=== PATIENT | female | born 1950 | race Caucasian/White ===

== ENCOUNTER 2019-08-17 20:26 | Inpatient (IN) | payer MEDICARE, BC ==
[~2019-08-17] VITALS: Ht 160 cm; Wt 44.0 kg
--- NOTE | 2019-08-17 21:30 | NUR ---
GPS ADMISSION NOTE, RECEIVED PATIENT FROM [facility] HOME. PATIENT ARRIVED ON THIS UNIT AT 2130 VIA WHEELCHAIR WITH 1 ORACLE SOA CONSULTANT ESCORT. PATIENT ADMITTED VOLUNTARY UPON FACE TO FACE ASSESSMENT PATIENT IS NOTED TO BEING DISHEVELED, DISORGANIZED, DEPRESSED, COOPERATIVE, PARANOID, AND NEEDS REDIRECTION. PATIENT IS CURRENTLY LYING IN BED AWAKE, HAS NO S/S OR COMPLAINTS OF PAIN AT THIS TIME. PATIENT IS DISPLAYING NO S/S OF APPARENT DISTRESS. PATIENT BREATHING IS UNLABORED WITH EQUAL RISE AND FALL OF THE CHEST. PATIENT IS ALERT AND ORIENTATED X 3 ON ROOM AIR. PATIENT ASSISTED WITH TURING AND REPOSITIONING Q2HR AND PRN FOR COMFORT AND CIRCULATION. PATIENT HAS NO NEEDS AT THIS TIME. PATIENT DENIES HOMICIDAL IDEATIONS AND HAS SUICIDE IDEATIONS AT THIS TIME. PATIENT EVALUATED BY CRISIS TEAM AND SIGNED VOLUNTARY. BUT PATIENT REFUSED TO SIGN OTHER PAPER WORK DUE TO BEING TIRED. PATIENT RIGHTS BOOKLET GIVEN. PATIENT IS UNDER THE PSYCHIATRIC CARE OF DR. PRAKASH AND THE MEDICAL CARE OF DR COLMENARES. PATIENT BELONGINGS WERE INVENTORIED AND CHECKED FOR CONTRABAND. ALL CONTRABAND REMOVED AND STORED IN PATIENT HALLWAY LOCKER. PATIENT ADVANCED DIRECTIVES PREFERENCE, IMMUNIZATIONS QUESTIONER, NECESSARY PAPERWORK COMPLETED. PATIENT REFUSED SKIN ASSESSMENT. PATIENT ORIENTATED TO ROOM, FLOOR, AND STAFF WITH ALL QUESTIONS ANSWERED. PATIENT EDUCATED ON THE USE OF THE CALL COSBY. PATIENT BED SIDE RAILS ARE UP X 2 FOR SAFETY. PATIENT BED IS LOCKED, LOW, AND I WILL CONTINUE TO MONITOR THIS PATIENT Q 15 MIN WITH THE HELP OF STAFF TO MAINTAIN SAFETY.
[2019-08-17 21:40] VITALS: BP 146/64
[2019-08-17] MEDS ORDERED: ALEN70TA3 PO (22:22)
[2019-08-17] MEDS ORDERED: ALPR1TAB7 PO (22:23)
[2019-08-17] MEDS ORDERED: CEVI30CA4 PO (22:24)
[2019-08-17] MEDS ORDERED: SERT25TA PO (22:26)
[2019-08-17] MEDS ORDERED: HYDR200T81 PO (22:26)
[2019-08-17] MEDS ORDERED: TRAZ300T2 PO (22:27)
[2019-08-17] MEDS ORDERED: MAGNESIUM HYDROXIDE 30 ML UDC PO PRN (22:30)
[2019-08-17] MEDS ORDERED: MAG HYDROX/AL HYDROX/SIMETH 30 ML UDC PO PRN (22:30)
[2019-08-17] MEDS ORDERED: HYDR-4075 PO (22:55)
--- NOTE | 2019-08-17 22:58 | NUR ---
RN NOTES: EXPLAINED TO PATIENT WE NEED TO DO BODY CHECK/ASSESSMENT PART OF OUR ADMISSION PROTOCOL, SHE SAID "NOT AT THIS TIME, I JUST WANT MY SLEEPING PILL PLEASE", SHE ALSO REFUSED FOR BLOOD SUGAR CHECK.
[2019-08-17] MEDS ORDERED: BLOOD SUGAR DIAGNOSTIC 1 EACH STRIP IN ONE (23:00)
[2019-08-17] MEDS: TEMAZEPAM 7.5 MG CAPSULE PO PRN (23:16)
[2019-08-17] MEDS ORDERED: hydrALAZINE HCL 10 MG TABLET PO PRN (23:30)
--- NOTE | 2019-08-17 23:34 | NUR ---
DEDRA NOTES: AT 2316 RESTORIL GIVEN FOR SLEEP PER PATIENT REQUEST.V/S STABLE NO SIGN OF AGITATION OR RESTLESSNESS, LYING QUIETLY IN HER BED,KEPT COMFORTABLE IN BED. Addendum: 08/18/19 at 0154 by MARGARET HEATH RN ADDED NOTES: OFFERED PNA AND FLU VACCINE, SHE REFUSE FOR BOTH. Addendum: 08/18/19 at 0155 by MARGARET HEATH RN ADDED NOTED: DESPITE EXPLANATION OF THE ADVANTAGE/DISADVANTAGE OF FLU AND PNA VACCINE SHE STILL DECLINE TO GET IT.
--- NOTE | 2019-08-18 04:07 | NUR ---
RN NOTES: ASLEEP FROM 0000, KEPT ON CLOSE WATCH, BED LOW AND LOCKED, FALL,SAFETY AND ASPIRATION PRECAUTION OBSERVED AT ALL TIME.
--- NOTE | 2019-08-18 05:25 | NUR ---
RN NOTES: AWAKE, CALLS AND NEEDS ATTENDED, SHE REFUSE FOR NASAL SWAB FOR MRSA SCREENING, WILL TRY AGAIN LATER. SHE ADMIT SHE SMOKE BEFORE BUT NOT ANYMORE, CANNOT RECALL HOW MANY YEARS SHE ALREADY STOP.
[2019-08-18 07:55] LABS: BASOPHILS % (AUTO) 0.7 % (0.0-2.0); EOSINOPHILS % (AUTO) 1.6 % (0.0-6.0); HEMATOCRIT 38 % (33-45); LYMPHOCYTES # (AUTO) 1.2 /CMM (0.8-4.8); LYMPHOCYTES % (AUTO) 28.6 % (20.0-44.0); MEAN CORPUSCULAR HGB CONC 34 g/dl (31.0-36.0); MEAN CORPUSCULAR VOLUME 100 fL (82-100); MONOCYTES # (AUTO) 0.3 /CMM (0.1-1.30); MONOCYTES % (AUTO) 8.1 % (2.0-12.0); NEUTROPHILS # (AUTO) 2.6 /CMM (1.8-8.9); PLATELET COUNT (AUTO) 148 /CMM (150-450); RED BLOOD CELL COUNT(AUTO) 3.84 MIL/uL (4.0-5.2); WHITE BLOOD COUNT (AUTO) 4.3 K/uL (4.3-11.0)
[2019-08-18 08:00] VITALS: BP 121/72
[2019-08-18 08:00] LABS: CALCIUM, SERUM 8.2 mg/dL (8.5-10.1); CREATININE 0.7 mg/dL (0.6-1.3); POTASSIUM 3.9 mmol/L (3.5-5.1)
[2019-08-18] MEDS: HYDROXYCHLOROQUINE 200 MG TABLET PO SCH (09:00)
--- NOTE | 2019-08-18 09:29 | NUR ---
GPS RN NOTES PATIENT REFUSED TO HAVE AM MEDICATION. RISKS AND BENEFITS EXPLAINED BUT TO NO AVAIL. PATIENT STRONGLY REFUSED. CHARGE NURSE AWARE. WILL CONTINUE TO MONITOR
--- NOTE | 2019-08-18 13:00 | NUR ---
GPS RN NOTES PATIENT SEEN AND EXAMINED BY WALE COLMENARES CLUTCH SPECIALIST. HOSPITALIST VERIFIED CODE STATUS WITH PATIENT AND PATIENT VERBALIZED SHE WANTS TO BE DNR/DNI. PATIENT SIGNED POLST FORM. CHARGE NURSE ALSO MADE AWARE. PATIENT WITH NEW ORDER FROM WALE COLMENARES FOR UA. PATIENT MADE AWARE AND VERBALIZED SHE WILL PROVIDE URINE SAMPLE NEXT TIME SHE GOES TO THE BATHROOM. WILL CONTINUE TO MONITOR
[2019-08-18 16:00] VITALS: BP 136/76
--- NOTE | 2019-08-18 18:05 | NUR ---
GPS RN NOTES PATIENT REFUSED TO EAT OR DRINK ANYTHING. RISKS AND BENEFITS EXPLAINED BUT TO NO AVAIL. PATIENT STRONGLY REFUSED. NO URINE OUTPUT NOTED AT THIS TIME, PATIENT REPORTED LAST URINE OUTPUT THIS MORNING. NO BLADDER DISTENTION NOTED. OFFERED BLADDER SCAN BUT PATIENT REFUSED. RISKS AND BENEFITS EXPLAINED BUT PATIENT STRONGLY REFUSED. VERBALIZED SHE DOES NOT FEEL ANYTHING AND DOES NOT HAVE THE URGE TO VOID AT THIS TIME. VERBALIZED SHE WILL PROVIDE URINE SAMPLE WHEN SHE NEEDS TO URINATE. PSYCH MD AND HOSPITALIST AWARE. WILL CONTINUE TO MONITOR
[2019-08-18] MEDS: LORAZEPAM 0.5 MG TABLET PO PRN (19:54)
[2019-08-18 20:45] VITALS: BP 155/77
[2019-08-18] MEDS: TRAZODONE 50 MG TABLET PO SCH (21:15)
--- NOTE | 2019-08-19 07:46 | NUR ---
GPS RN NOTES PATIENT ON BED ,RESTING COMFORTABLY AT THI TIME , ALERT ORIENTED , NO SOB NOTED , RESPIRATION EVEN UNLABORED, PLAN OF CARE DISCUSSED WITH PATIENT , BED LOCKED AND LOWEST POSITION, WILL CONT TO MONITOR Q15 MIN FOR BEHAVIOR CHANGES ,
[2019-08-19 08:00] VITALS: BP 117/63
[2019-08-19] MEDS: HYDROXYCHLOROQUINE 200 MG TABLET PO SCH (09:00)
[2019-08-19] MEDS: SERTRALINE HCL 50 MG TABLET PO SCH (09:00)
--- NOTE | 2019-08-19 09:37 | NUR ---
GPS RN NOTE STRONGLY REFUSED TO HAVE BREAKFAST AND TAKE MORNING PO MEDS, EXPLAINED X2 ,STILL REFUSING, WILL CONT TO ENCOURAGE
--- NOTE | 2019-08-19 10:25 | NUR ---
GPS RN NOTE DIETITIAN AT BEDSIDE AWARE THAT PATIENT REFUSING TO EAT , STATED THAT NEED ORDER FOR SWALLOW EVAL ,ORDER CARRIED OUT
--- NOTE | 2019-08-19 11:23 | NUR ---
GPS RN NOTE WALE AT BEDSIDE AWARE THAT PATENT REFUSING PILLS AND TO EAT BREAKFAST WILL CONT TOMONITOR STILL UNABLE TO COLLECT UA SPECIMEN, WILL CONT TO TRY
--- NOTE | 2019-08-19 11:43 | NUR ---
GPS RN NOTE SEEN BY DR ROONEY DANCE HISTORIAN NOTIFIED THAT PATIENT STILL REFUSING TO EAT MEDS IN AM ,STATED TO MONITOR CLOSELY AND CONT TO ENCOURAGE TO TAKE MEDS
--- NOTE | 2019-08-19 12:30 | NUR ---
GPS RN NOTE STILL REFUSING TO HAVE LUNCH , OFFERED X2, EXPLAINED CONSEQUENCES OF NOT EATING ,STILL REUSING, WILL CONT TO MONITOR CLOSELY
--- NOTE | 2019-08-19 14:03 | NUR ---
gps rn note encouraged to to to br to collect urine specimen ,stated that dont need it at this time , turn reposition done , all needs attended encourage to take morning Meds but still refusing Addendum: 08/19/19 at 1712 by NEYMAR GONZALEZ RN WALE COLMENARES ROOM SERVICE MANAGER AWARE THAT UNABLE TO COLLECT URINE , NO STRAIGHT CATH AT THIS TIME PER WALE ,WILL CONT TO TRY TO COLLECT UA
[2019-08-19 16:00] VITALS: BP 144/63
--- NOTE | 2019-08-19 18:10 | NUR ---
GPS RN NOTE STILL REFUSING DINNER , OFFERED X 2 , OFFERED TO DRINK WATER , DRANK FEW SIPS , WILL CONT TO ENCOURAGE TO EAT
[2019-08-19] MEDS: LORAZEPAM 0.5 MG TABLET PO PRN (19:46)
--- NOTE | 2019-08-19 19:48 | NUR ---
RN NOTES : PT. C/O FEELING ANXIOUS RESTLESS ATIVAN 0.5 MG PO PRN GIVEN, PER PT. REQUEST , WILL CONTINUE TO MONITOR.
[2019-08-19 20:30] VITALS: BP 127/69
--- NOTE | 2019-08-19 20:30 | NUR ---
RN NOTES: PT. RFUSED WEEKLY SKIN REASSESSMENT AND PHOTOGRAPH ,ENCOURAGED ,EXPLAINED RISKS AND BENEFITS STILL REFUSED, PT. STRONGLY REFUSED, AND PER PT. MY SKIN IS FINE.
[2019-08-19] MEDS: TRAZODONE 50 MG TABLET PO SCH (22:02)
[2019-08-20] MEDS ORDERED: ALENDRONATE 70 MG TABLET PO SCH (07:00)
[2019-08-20 08:00] VITALS: BP 159/78
[2019-08-20] MEDS: HYDROXYCHLOROQUINE 200 MG TABLET PO SCH (08:46)
[2019-08-20] MEDS: SERTRALINE HCL 50 MG TABLET PO SCH (08:46)
[2019-08-20] MEDS: LORAZEPAM 0.5 MG TABLET PO PRN ×2 (08:46→20:25)
[2019-08-20 09:17] LABS: APPEARANCE,URINE CLEAR (CLEAR); BILIRUBIN,URINE 1+ (NEGATIVE); BLOOD, URINE NEGATIVE Ery/uL (NEGATIVE); COLOR,URINE YELLOW (YELLOW); KETONES,URINE 3+ (NEGATIVE); LEUKOCYTE ESTERASE ,URINE NEGATIVE (NEGATIVE); NITRITE, URINE NEGATIVE (NEGATIVE); PROTEIN,URINE TRACE mg/dl (NEGATIVE); UGLUCOSE NEGATIVE (NEGATIVE); UROBILINOGEN,URINE 0.2 EU/dL (0.2)
[2019-08-20 09:48] LABS: BACTERIA,URINE Rare /HPF (None Seen); RBC,URINE 0-2 /HPF (0-2); SQUAMOUS EPITHELIAL CELL,UR Few /HPF (None Seen); WBC,URINE 0-2 /HPF (0-3)
--- NOTE | 2019-08-20 14:56 | NUR ---
Group Note: SW encouraged pt to attend group therapy on 08/20/19 at 1:30pm discussing support systems for when they are in the hospital and for once they are discharged but the pt was unable to attend.
[2019-08-20 16:00] VITALS: BP 146/79
--- NOTE | 2019-08-20 16:01 | NUR ---
SW called the pts , Miguel Angel ([phone]), and left him a voicemail stating that the SW would like to speak to him regarding discharge planning and treatment planning.
[2019-08-20] MEDS: ENSURE CLEAR 237 ML LIQUID (MIX BERRY) PO SCH (17:00)
[2019-08-20 19:47] VITALS: BP 143/73
[2019-08-20] MEDS: TRAZODONE 50 MG TABLET PO SCH (21:30)
[2019-08-20] MEDS: TEMAZEPAM 7.5 MG CAPSULE PO PRN (23:07)
[2019-08-21 08:00] VITALS: BP 119/69
[2019-08-21] MEDS: HYDROXYCHLOROQUINE 200 MG TABLET PO SCH (08:45)
[2019-08-21] MEDS: SERTRALINE HCL 50 MG TABLET PO SCH (08:45)
[2019-08-21] MEDS: ENSURE CLEAR 237 ML LIQUID (MIX BERRY) PO SCH (08:51)
[2019-08-21] MEDS: ENSURE ENLIVE 237 ML LIQUID (VANILLA) PO SCH ×3 (09:00→17:14)
[2019-08-21] MEDS: LORAZEPAM 0.5 MG TABLET PO PRN ×2 (09:40→16:27)
--- NOTE | 2019-08-21 10:35 | NUR ---
Individual Intervention: SW met with the pt and discussed her treatment plan. It was discussed that the pt wants to be able to go to a facility but she wanted to have the ability to get a haircut and make her appointments. SW stated that the focus right now is getting her into a facility that is appropriate and can offer her care and they can assist with her appointments.
[2019-08-21 15:52] VITALS: BP 109/70
--- NOTE | 2019-08-21 16:30 | NUR ---
NURSING NOTE: PT STATING "I'M FEELING ANXIOUS", REQUESTING ATIVAN, ADMINISTERED ATIVAN 0.5MG PO PER MD ORDER. WILL CONTINUE TO MONITOR.
[2019-08-21 20:24] VITALS: BP 144/85
[2019-08-21] MEDS: TRAZODONE 50 MG TABLET PO SCH (21:28)
[2019-08-21] MEDS: TEMAZEPAM 7.5 MG CAPSULE PO PRN (21:28)
[2019-08-22 08:00] VITALS: BP 133/75
[2019-08-22] MEDS: SERTRALINE HCL 50 MG TABLET PO SCH (08:55)
[2019-08-22] MEDS: ENSURE ENLIVE 237 ML LIQUID (VANILLA) PO SCH ×3 (08:56→17:16)
[2019-08-22] MEDS: HYDROXYCHLOROQUINE 200 MG TABLET PO SCH (08:56)
[2019-08-22] MEDS: LORAZEPAM 0.5 MG TABLET PO PRN ×2 (09:55→19:08)
--- NOTE | 2019-08-22 14:41 | NUR ---
Pt. is alert and oriented x 3. Pt. is withdrawn by interaction during assessment.Her mucous membranes are soft and pink. She stated that she is does not want to talk much. Pt is cooperative with care and took meds as ordered by MD with no adverse effects noted. Pt had lunch and does not feel hungry. Snack and drink provided at beside. Pt is resting comfortably in bed with no discomfort noted. No SOB noted. Bed kept in low position.
--- NOTE | 2019-08-22 14:46 | NUR ---
SNF Referral: AURORA faxed a referral to 2 SNFs: [facility] to the fax number: [phone] [facility]: [phone]
--- NOTE | 2019-08-22 14:47 | NUR ---
AURORA called the pts , Miguel Angel ([phone]), and attempted to speak to him but the call went to voicemail and the mailbox was full.
[2019-08-22 16:00] VITALS: BP 115/61
--- NOTE | 2019-08-22 16:12 | NUR ---
Patient observed with wound to the right ear. Picture taken in the chart. No compliant of pain at this time.
--- NOTE | 2019-08-22 16:17 | NUR ---
GROUP NOTE: SW encouraged pt to attend group therapy on this present day discussing "discharge planning." Pt refused to attend and did not acknowledge SW, pt is isolative and does not eat or drink and does not engage in any physical activity.
--- NOTE | 2019-08-22 19:10 | NUR ---
Patient C/O anxiety . Ativan 0.5mg administered. Encouraged to verbalize feelings and concerns. Stated discomfort with her stomach possibly from eating ice-cream. Will continue to monitor.
--- NOTE | 2019-08-22 20:00 | NUR ---
GPS RN PM OPENING NOTE PATIENT AWAKE AND IN BED REPORTS HAVING REPORTS SOME MINOR ANXIETY. PATIENT IS DISPLAYING NO S/S OF APPARENT DISTRESS AT THIS TIME. PATIENT IS BREATHING UNLABORED WITH EQUAL RISE AND FALL OF THE CHEST. PATIENT IS ALERT AND ORIENTED X4 ON ROOM AIR. PATIENT REPORTEDLY IS MED COMPLIANT. PATIENT DENIES SI OR HI AT THIS TIME. PATIENT PO INTAKE ENCOURAGED BUT PATIENT STATES THAT SHE HAS BEEN HAVING DIARRHEA AND MIGHT NOT HAVE ANY SNACKS TONIGHT UNTIL THAT SUBSIDES. PATIENT HAS NO NEEDS AT THIS TIME POC REVIEWED QUESTIONS CONCERNS ADDRESSED. WILL CONT TO MONITOR.
[2019-08-22 20:05] VITALS: BP 137/80
[2019-08-22] MEDS: TRAZODONE 50 MG TABLET PO SCH (21:13)
[2019-08-22] MEDS: TEMAZEPAM 7.5 MG CAPSULE PO PRN (21:13)
[2019-08-23 08:00] VITALS: BP 120/63
[2019-08-23] MEDS: HYDROXYCHLOROQUINE 200 MG TABLET PO SCH (08:43)
[2019-08-23] MEDS: ENSURE ENLIVE 237 ML LIQUID (VANILLA) PO SCH ×3 (08:43→16:30)
[2019-08-23] MEDS: SERTRALINE HCL 50 MG TABLET PO SCH (08:43)
--- NOTE | 2019-08-23 12:54 | NUR ---
Cierra ([phone]) from [facility] contacted the and stated that the pt was accepted to their facility.
--- NOTE | 2019-08-23 12:55 | NUR ---
Shayna ([phone]) from [facility] contacted the and stated that the pt was accepted to their facility.
--- NOTE | 2019-08-23 12:55 | NUR ---
AURORA called the pts , Miguel Angel ([phone]), and attempted to speak to him but the call went to voicemail and the mailbox was full.
--- NOTE | 2019-08-23 13:22 | NUR ---
Pts , Miguel Angel ([phone]), called the SW and left a voicemail stating that he would like to speak to the SW but when the SW attempted to call him back at the number that he left, there was a busy dial tone.
--- NOTE | 2019-08-23 13:28 | NUR ---
AURORA called the pts , Miguel Angel ([phone]), and informed him that the pt was accepted to two nursing facilities called [facility] and [facility]. AURORA stated that the pts discharge is set for tomorrow and that both facilities are around their area.
[2019-08-23 16:00] VITALS: BP 107/55
--- NOTE | 2019-08-23 16:31 | NUR ---
Group Note 08/23/19: SW approached patient at bedside and invited them to attend today's support group at 2 pm in the activities room regarding mindfulness. Patient refused to participate in group. SW encouraged pt. to participate or sit in. Patient refused. SW will invite patient to next group session.
--- NOTE | 2019-08-23 18:25 | NUR ---
GPS END OF SHIFT NOTES PT IN BED, REFUSING TO EAT DINNER EXCEPT FOR ENSURE. VSS. DENIES SUICIDAL IDEATION. WILL ENDORSE TO PM NURSE FOR MICKY.
[2019-08-23 20:36] VITALS: BP 112/59
[2019-08-23] MEDS: TRAZODONE 50 MG TABLET PO SCH (21:24)
[2019-08-23] MEDS: TEMAZEPAM 7.5 MG CAPSULE PO PRN (21:24)
[2019-08-24 08:00] VITALS: BP 128/69
[2019-08-24] MEDS: HYDROXYCHLOROQUINE 200 MG TABLET PO SCH (08:10)
[2019-08-24] MEDS: SERTRALINE HCL 50 MG TABLET PO SCH (08:10)
[2019-08-24] MEDS: ENSURE ENLIVE 237 ML LIQUID (VANILLA) PO SCH ×2 (08:11→12:27)
--- NOTE | 2019-08-24 09:20 | NUR ---
DR. PRAKASH GAVE AN ORDER TO [place] [facility] CONTINUE SAME MEDS INCLUDING PRN AND TO FOLLOW UP WITH PSYCH AND MEDICAL DOCTORS.
[2019-08-24] MEDS: NEOMY SULF/BACITRAC ZN/POLY 15 GM TUBE TP SCH ×2 (11:20→13:45)
--- NOTE | 2019-08-24 12:00 | NUR ---
Individual Intervention: SW spoke to the pt about her discharge plan to [facility] and she stated that she wanted to be at the facility as soon as possible.
--- NOTE | 2019-08-24 12:26 | NUR ---
Discharge Note: Pt was discharged to [facility] ([facility]) [place] at [address] [place] [address]; . Pt was transported via [facility] at 1PM kyle Rm 22B. Pt�s , Miguel Angel ([phone]), was made aware. Upon discharge, the pt appeared to be in a euthymic mood and presented with a calm affect. Pt denied both suicidal and homicidal ideation as well as auditory and visual hallucinations. Pt will continue to be under the care of her psychiatrist, Dr. Torres, [place] at [address] [place] [address]; and plant operations worker, Dr. Chirinos, located at [address] [place] [address]; .
--- NOTE | 2019-08-24 14:25 | NUR ---
GPS/RN - Discharge Note Jackie Alvarado is a 68 year old female, discharged to [facility] in stable condition. Reviewed discharge instructions with DEDRA Marks at [facility] ([phone]) and she verbalized full understanding. Patient compliant with medications, cooperative with treatment plans. Patient is alert and oriented x 3-4, ambulatory with assist, denies pain, not in any form of distress, afebrile, stable on room air. Patient denies suicidal ideation or homicidal ideation and visual or auditory hallucinations at this time. Wound pictures taken, wound treatment done on the right ear abrasion, sacrum is intact. Behavior improved, psychiatric treatment plans met, medical treatment plans deferred for continual monitoring. Medications reconciled with Dr. Torres and Dr. Mishra. Patient refused to sign her discharge paperwork. Returned all personal belongings to patient and she deny any missing items. Patient left the unit at 13:20 via ambulance. Miguel Angel is aware of discharge.
== END 2019-08-24 14:20 | DRG 885 ==
LOC: GPS 20:26
PROVIDERS: ADMIT Psychiatry & Neurology Psychiatry
DX: F33.2 Major depressive disorder, recurrent severe without psychotic features (principal); I73.00 Raynaud's syndrome without gangrene; F42.9 Obsessive-compulsive disorder, unspecified; Z86.73 Personal history of transient ischemic attack (TIA), and cerebral infarction without residual deficits; I10 Essential (primary) hypertension; L30.9 Dermatitis, unspecified; M35.00 Sjogren syndrome, unspecified; Z66 Do not resuscitate; Z79.899 Other long term (current) drug therapy; F41.9 Anxiety disorder, unspecified
CPT/HCPCS: 36415; 80048-TC; 80061-TC; 81000-TC; 85025-TC; 92526; 92611-TC; 97116-TC; 97530-TC